=== PATIENT | female | born 1945 | race Caucasian/White ===

== ENCOUNTER 2021-01-08 16:01 | Emergency (ER) | payer MEDICARE, MEDICAID ==
[~2021-01-08] VITALS: Ht 162.6 cm; Wt 68.7 kg
[2021-01-08] MEDS ORDERED: MECLIZINE HCL25 MG PO (17:39)
--- NOTE | 2021-01-08 22:33 | EKG ---
[facility] [address] [facility] [place] [address] Signed Normal sinus rhythm Septal infarct , age undetermined Abnormal ECG No previous ECGs available Confirmed by MAYRA ZEPEDA MD ([id number] on 01/08/2021 10:33:00 PM Electronically Signed By: MAYRA ZEPEDA MD 01/08/[id number] PATIENT NAME: ITZEL OSHEA Electrocardiogram DATE OF : 49 PHYSICIAN: MAYRA ZEPEDA MD REPORT #: [id number] REPORT IS CONFIDENTIAL AND NOT TO BE RELEASED WITHOUT AUTHORIZATION
== END 2021-01-08 18:11 | disposition home or self-care (01) ==
LOC: ED 16:01
DX: R42 Dizziness and giddiness (principal); J45.909 Unspecified asthma, uncomplicated; Z88.5 Allergy status to narcotic agent; Z91.040 Latex allergy status
CPT/HCPCS: 80053; 85025; 93005; 93010; 99284; A9270

== ENCOUNTER 2022-02-16 15:59 | Emergency (ER) | payer MEDICARE, MEDICAID ==
[~2022-02-16] VITALS: Ht 162.6 cm; Wt 66.2 kg
[~2022-02-16 15:59] MED LIST: MECLIZINE HCL25 MG PO
[2022-02-16] MEDS ORDERED: FLUOXETINE HCL10 MG PO (16:22)
[2022-02-16] MEDS ORDERED: LEVALBUTEROL TA15 GM IH (16:22)
[2022-02-16] MEDS ORDERED: LAMOTRIGINE25 MG PO (16:22)
[2022-02-16] MEDS ORDERED: BIKTARVY 50-201 EACH PO (16:23)
[2022-02-16] MEDS ORDERED: EZETIMIBE10 MG PO (16:23)
--- NOTE | 2022-02-16 21:54 | EKG ---
[facility] [address] [facility] [place], [place] [address] Signed Normal sinus rhythm Nonspecific ST and T wave abnormality Abnormal ECG No previous ECGs available Confirmed by MAYRA ZEPEDA MD ([id number] on 02/16/2022 9:54:04 PM Electronically Signed By: MAYRA ZEPEDA MD [id number] PATIENT NAME: ITZEL OSHEA Electrocardiogram DATE OF : 49 PHYSICIAN: MAYRA ZEPEDA MD REPORT #: [id number] REPORT IS CONFIDENTIAL AND NOT TO BE RELEASED WITHOUT AUTHORIZATION
== END 2022-02-16 18:00 | disposition home or self-care (01) ==
LOC: ED 15:59
DX: R07.9 Chest pain, unspecified (principal); J45.909 Unspecified asthma, uncomplicated; Z21 Asymptomatic human immunodeficiency virus [HIV] infection status; Z88.5 Allergy status to narcotic agent; Z91.040 Latex allergy status; Z79.899 Other long term (current) drug therapy
CPT/HCPCS: 36415; 71045; 80053; 83735; 84484; 85025; 93005; 93010; 99285-25; A9270

== ENCOUNTER 2022-05-06 13:47 | Emergency (ER) | payer MEDICARE, MEDICAID ==
[~2022-05-06] VITALS: Ht 162.6 cm; Wt 66.4 kg
[~2022-05-06 13:47] MED LIST changes: +BIKTARVY 50-201 EACH PO; +EZETIMIBE10 MG PO; +FLUOXETINE HCL10 MG PO; +LAMOTRIGINE25 MG PO; +LEVALBUTEROL TA15 GM IH
== END 2022-05-06 16:46 | disposition home or self-care (01) ==
LOC: ED 13:47
DX: S22.32XA Fracture of one rib, left side, initial encounter for closed fracture (principal); W18.09XA Striking against other object with subsequent fall, initial encounter; J45.909 Unspecified asthma, uncomplicated; Z21 Asymptomatic human immunodeficiency virus [HIV] infection status; Z88.2 Allergy status to sulfonamides; Z88.5 Allergy status to narcotic agent; Z91.040 Latex allergy status; Z79.899 Other long term (current) drug therapy
CPT/HCPCS: 71045; 71100; 99283-25

== ENCOUNTER 2023-01-17 13:59 | Emergency (ER) | payer OTHER, MEDICARE ==
[~2023-01-17] VITALS: Ht 162.6 cm; Wt 65.3 kg
[2023-01-17] MEDS ORDERED: VENLAFAXINE H37.5 M1 PO (15:10)
[2023-01-17] MEDS ORDERED: OXYBUTYNIN CHLOR5 M1 PO (15:11)
[2023-01-17] MEDS ORDERED: HYDROCORTISONE454 GM (15:11)
[2023-01-17] MEDS ORDERED: NAPROSYN500 MG PO (16:08)
[2023-01-17] MEDS ORDERED: LIDODERM1 EACH TOP (16:08)
[2023-01-17 16:30] VITALS: BP 131/73
== END 2023-01-17 16:30 | disposition home or self-care (01) ==
LOC: ED 13:59
DX: S20.211A Contusion of right front wall of thorax, initial encounter (principal); W18.30XA Fall on same level, unspecified, initial encounter; J45.909 Unspecified asthma, uncomplicated; Z21 Asymptomatic human immunodeficiency virus [HIV] infection status; Z88.2 Allergy status to sulfonamides; Z88.5 Allergy status to narcotic agent; Z91.040 Latex allergy status; Z79.899 Other long term (current) drug therapy
CPT/HCPCS: 71101; 99283-25

== ENCOUNTER 2023-09-12 15:38 | Emergency (ER) | payer MEDICARE, OTHER ==
[~2023-09-12] VITALS: Ht 162.6 cm; Wt 63.4 kg
[~2023-09-12 15:38] MED LIST changes: +ADULT LOW DOSE81 MG PO; +ARIPIPRAZOLE2 MG PO; +CITALOPRAM HBR10 MG PO; +ESOMEPRAZOLE MA20 MG PO; +FERROUS SULFAT325 M2 PO; +FISH OIL 1,201200 MG PO; +FLUOXETINE HCL20 MG PO; +FOLIC ACID0.4 MG PO; +HYDROCORTISONE454 GM; +LEVALBUTEROL TA15 GM INH; +LIDODERM1 EACH TOP; +MECLIZINE HCL12.5 MG PO; +MULTIPLE VITAM1 EAC2 PO; +NAPROSYN500 MG PO; +OMEPRAZOLE20 MG PO; +OXYBUTYNIN CHLOR5 M1 PO; +ROSUVASTATIN CA40 MG NG; +VENLAFAXINE H37.5 M1 PO; +VITAMIN C1000 MG PO
[2023-09-12 18:09] VITALS: BP 140/84
== END 2023-09-12 18:09 | disposition home or self-care (01) ==
LOC: ED 15:38
DX: H53.9 Unspecified visual disturbance (principal); J45.909 Unspecified asthma, uncomplicated; Z21 Asymptomatic human immunodeficiency virus [HIV] infection status; Z79.899 Other long term (current) drug therapy; Z79.82 Long term (current) use of aspirin; Z88.2 Allergy status to sulfonamides; Z91.040 Latex allergy status; Z88.5 Allergy status to narcotic agent; Z88.8 Allergy status to other drugs, medicaments and biological substances
CPT/HCPCS: 99283; 99284-25

== ENCOUNTER 2024-03-17 23:39 | Emergency (ER) | payer MEDICARE, OTHER ==
[~2024-03-17] VITALS: Ht 162.6 cm; Wt 62.4 kg
[2024-03-17] MEDS ORDERED: FLUTICASONE PRO16 GM (23:50)
[2024-03-18] MEDS ORDERED: SOD PHOSPHATE/SOD BIPHOSPHATE 132 ML BTL PR ONE (00:30)
[2024-03-18] MEDS ORDERED: LACTULOSE10 GM/15 M PO (01:13)
[2024-03-18 01:25] VITALS: BP 172/84
== END 2024-03-18 01:27 | disposition home or self-care (01) ==
LOC: ED 23:39
DX: K59.00 Constipation, unspecified (principal); J45.909 Unspecified asthma, uncomplicated; Z21 Asymptomatic human immunodeficiency virus [HIV] infection status; Z88.2 Allergy status to sulfonamides; Z88.8 Allergy status to other drugs, medicaments and biological substances; Z88.5 Allergy status to narcotic agent; Z91.040 Latex allergy status; Z79.899 Other long term (current) drug therapy; Z79.82 Long term (current) use of aspirin
CPT/HCPCS: 74018; 99283

== ENCOUNTER 2024-05-09 09:55 | Emergency (ER) | payer MEDICARE, OTHER ==
[~2024-05-09] VITALS: Ht 162.6 cm; Wt 61.2 kg
[2024-05-09] MEDS ORDERED: LORazepam 0.5 MG TAB PO ONE (10:15)
[2024-05-09 10:47] VITALS: BP 166/87
== END 2024-05-09 10:49 | disposition home or self-care (01) ==
LOC: ED 09:55
DX: F41.9 Anxiety disorder, unspecified (principal); J45.909 Unspecified asthma, uncomplicated; Z21 Asymptomatic human immunodeficiency virus [HIV] infection status; Z95.2 Presence of prosthetic heart valve; Z88.2 Allergy status to sulfonamides; Z88.5 Allergy status to narcotic agent; Z88.8 Allergy status to other drugs, medicaments and biological substances; Z91.040 Latex allergy status; Z79.82 Long term (current) use of aspirin; Z79.899 Other long term (current) drug therapy
CPT/HCPCS: 99283

== ENCOUNTER 2024-08-30 10:50 | Emergency (ER) | payer MEDICARE, OTHER ==
[~2024-08-30] VITALS: Ht 162.6 cm; Wt 61.7 kg
[~2024-08-30 10:50] MED LIST changes: +FLUTICASONE PRO16 GM; +HYDROXYZINE HCL10 MG PO; +LACTULOSE10 GM/15 M PO
[2024-08-30] MEDS ORDERED: DICLOFENAC SODI50 GM TOP (12:09)
[2024-08-30 12:16] VITALS: BP 124/70
== END 2024-08-30 12:16 | disposition home or self-care (01) ==
LOC: ED 10:50
DX: S63.501A Unspecified sprain of right wrist, initial encounter (principal); J45.909 Unspecified asthma, uncomplicated; Z88.2 Allergy status to sulfonamides; Z91.040 Latex allergy status; Z88.8 Allergy status to other drugs, medicaments and biological substances; Z88.5 Allergy status to narcotic agent; Z79.899 Other long term (current) drug therapy; X50.1XXA Overexertion from prolonged static or awkward postures, initial encounter
CPT/HCPCS: 73110; 99283